=== PATIENT | female | born 1975 | race African-American/Black ===

== ENCOUNTER 2017-06-21 17:47 | Emergency (ER) | payer OTHER ==
[2017-06-21 18:09] VITALS: BP 155/106; PULSE 99; TEMP 98.3; BMI 28.3
--- NOTE | 2017-06-21 18:09 | PDOC ---
Rapid Medical Evaluation Time Seen by Provider: 06/21/17 18:05 Medical Evaluation: Allergies Allergy/AdvReac Type Severity Reaction Status Date / Time No Known Allergies Allergy Verified 06/29/15 10:07 06/21/17 18:05 The patient presents with a chief complaint of: Sore throat for one week. States she had a fever when the sore throat started, but it has since went away. also admits to productive cough I have performed a brief in-person evaluation of this patient; Pertinent physical exam findings: ambulatory, in no respiratory distress. Mild Erythema of the posterior oropharynx I have ordered the following: rapid strep The patient will proceed to the ED for further evaluation.
--- NOTE | 2017-06-21 20:01 | PDOC ---
History of Present Illness - General Chief Complaint: Sore Throat Stated Complaint: SORE THROAT Time Seen by Provider: 06/21/17 18:05 History Source: Patient Exam Limitations: No Limitations - History of Present Illness Initial Comments: CHIEF COMPLAINT: 42 y/o afebrile female with PMH NIDDM and HTN c/o scratchy throat and cough x 3 days. HISTORY OF PRESENT ILLNESS: Patient states last week she had a fever one day but that resolved. She states for the past 3 days she's had a cough and scratchy throat. She denies all other symptoms, including PINEDA, dizziness, changes in vision, neck pain. Vital signs on arrival are notable for BP of 155/106. REVIEW OF SYSTEMS: GENERAL/CONSTITUTIONAL: fever last week - resolved HEAD, EYES, EARS, NOSE AND THROAT: No change in vision. No ear pain or discharge. + sore throat. CARDIOVASCULAR: No chest pain or shortness of breath. RESPIRATORY: +cough. No wheezing or hemoptysis. GASTROINTESTINAL: No abd pain, nausea, vomiting, diarrhea. GENITOURINARY: No dysuria, frequency, or change in urination. MUSCULOSKELETAL: No joint or muscle swelling or pain. No neck or back pain. SKIN: No rash or easy bruising. NEUROLOGIC: No headache, vertigo, loss of consciousness, or loss of sensation. PHYSICAL EXAM: GENERAL: The patient is awake, alert, and fully oriented, in no acute distress. She is well appearing and ambulatory. No cough in the ER. HEAD: Normal with no signs of trauma. ENT: Pupils equal, round and reactive to light, extraocular movements intact, sclera anicteric, conjunctiva clear. Posterior pharyngeal erythema. No tonsilar edema or exudate. Uvula midline. NECK: No tender cervical lymphadenopathy. LUNGS: Clear to auscultation bilaterally. Normal excursion. No respiratory distress or use of accessory muscles. CV: RRR, S1/S2, no MRG. Cap refill < 2 sec. ABDOMEN: Soft, non-distended, non-tender even to deep palpation, no hepatomegaly or splenomegaly, no masses. EXTREMITIES: Normal range of motion, no edema. NEUROLOGICAL: Normal speech, normal gait. CN II-XII grossly intact. SKIN: Warm, dry, normal turgor, no rashes or lesions noted. Past History - Past Medical History Allergies/Adverse Reactions: Allergies Allergy/AdvReac Type Severity Reaction Status Date / Time No Known Allergies Allergy Verified 06/21/17 18:05 Home Medications: Ambulatory Orders Metformin HCl 500 mg PO BID 06/29/15 Ramipril 5 mg PO DAILY 06/29/15 COPD: No Diabetes: Yes HTN: Yes - Surgical History Abdominal Surgery: Yes (LAPAROSCOPY) - Suicide/Smoking/Psychosocial Hx Smoking History: Never smoked Have you smoked in the past 12 months: No Hx Alcohol Use: No Drug/Substance Use Hx: No *Physical Exam - Vital Signs Last Vital Signs Temp Pulse Resp BP Pulse Ox 98.3 F 99 H 19 155/106 100 06/21/17 18:06 06/21/17 18:06 06/21/17 18:06 06/21/17 18:06 06/21/17 18:06 Medical Decision Making - Medical Decision Making A/P: 42 y/o female with 3 days of cold symptoms. Rapid strep was sent from triage. Rapid strep - negative Gave patient instructions. Suggested MOtrin for pain/sore throat, gargling with warm salt water, and OTC allergy and cough medicines. Pt instructed to return to the ER with any worsening or concerning symptoms. The patient verbalizes understanding of all instructions, has no further questions and is awaiting discharge. *DC/Admit/Observation/Transfer Diagnosis at time of Disposition: Common cold - Discharge Dispostion Disposition: HOME Condition at time of disposition: Good - Referrals Referrals: Mikael Finley MD [Primary Care Provider] - Call tomorrow - Patient Instructions Printed Discharge Instructions: DI for Common Cold Additional Instructions: Discharge Instructions: -The swab of your throat was negative for strep throat -Gargle with warm salt water and use cough drops to help with sore throat and cough -Take MOtrin or Advil for pain -Drink at least 64oz of water daily -Return to the ER with any worsening or concerning symptoms - Post Discharge Activity
== END 2017-06-21 20:10 | disposition home or self-care (01) ==
LOC: JERFT 17:47
DX: J00 Acute nasopharyngitis [common cold] (principal); I10 Essential (primary) hypertension; E11.9 Type 2 diabetes mellitus without complications; Z79.84 Long term (current) use of oral hypoglycemic drugs
CPT/HCPCS: 87070; 87430; 99281-25

== ENCOUNTER 2017-08-23 09:52 | Emergency (ER) | payer OTHER ==
[2017-08-23 10:01] VITALS: BP 130/79; PULSE 85; TEMP 98.3; BMI 29.1
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
== END 2017-08-23 11:36 | disposition home or self-care (01) ==
LOC: JERFT 09:52 → JER 09:52 → JERFT 11:36
DX: Y04.1XXA Assault by human bite, initial encounter (principal); Y93.89 Activity, other specified; Y92.218 Other school as the place of occurrence of the external cause; Y99.0 Civilian activity done for income or pay; Y07.9 Unspecified perpetrator of maltreatment and neglect
CPT/HCPCS: 99281-25

== ENCOUNTER 2019-04-21 07:12 | Emergency (ER) | payer OTHER ==
[2019-04-21 08:03] VITALS: BP 151/82; PULSE 109; TEMP 99.2; BMI 29.8
[2019-04-21] MEDS ORDERED: ACETAMINOPHEN 500 MG TABLET (FP) PO ONE (08:15)
--- NOTE | 2019-04-21 08:15 | PDOC ---
History of Present Illness - General History Source: Patient Exam Limitations: No Limitations - History of Present Illness Initial Comments: 04/21/19 08:11 Patient is a 44-year-old female who presents to the ED with 2 to 3 days of significant body aches, fevers with T-max of 102F, rhinorrhea and general malaise. She has a history of hypertension and diabetes. She has non-insulin- dependent. She states that she believes she has the flu and came to the ED for further evaluation. She has been taking Tylenol and ibuprofen for her fevers and body aches. <Dyan Izaguirre - Last Filed: 04/21/19 08:39> <Alvaro Retana - Last Filed: 04/21/19 14:12> - General Chief Complaint: Cold Symptoms Stated Complaint: WEAKNESS,CHILLS Time Seen by Provider: 04/21/19 08:04 Past History - Past Medical History COPD: No DVT: No Diabetes: Yes HTN: Yes - Surgical History Abdominal Surgery: Yes (LAPAROSCOPY) - Psycho Social/Smoking Cessation Hx Smoking History: Never smoked Have you smoked in the past 12 months: No Information on smoking cessation initiated: No Hx Alcohol Use: No Drug/Substance Use Hx: No Substance Use Type: None <Dyan Izaguirre - Last Filed: 04/21/19 08:39> <Alvaro Retana - Last Filed: 04/21/19 14:12> - Past Medical History Allergies/Adverse Reactions: Allergies Allergy/AdvReac Type Severity Reaction Status Date / Time No Known Allergies Allergy Verified 10/03/17 16:47 Home Medications: Ambulatory Orders Ramipril 5 mg PO DAILY 06/29/15 metFORMIN HCL [Metformin HCl] 500 mg PO BID 06/29/15 Amoxicillin/Potassium Clav [Augmentin 875-125 Tablet] 1 each PO BID 10 Days #20 tablet 10/03/17 Oseltamivir Phosphate [Tamiflu] 75 mg PO BID #10 capsule 04/21/19 Review of Systems - Review of Systems Comments:: 04/21/19 08:12 - Review of Systems Able to Perform ROS?: Yes Constitutional: Positive: Fever, Chills, Loss of Appetite, malaise; no: Night Sweats, Weakness HEENTM: No: Eye Pain, Vision changes, Ear Pain, Throat Pain, Throat Swelling, Mouth Pain, Difficulty Swallowing; + rhinorrhea Respiratory: No: Cough, Shortness of Breath, Wheezing, Sputum Production Cardiac (ROS): No: Chest Pain, Chest Tightness, Palpitations, Irregular Heart Beat, Edema ABD/GI: No: Nausea, Vomiting, Abdominal Pain, Diarrhea : No Dysuria, No Hematuria, No Frequency, No Urgency Musculoskeletal: No: Muscle Pain, Back Pain, Joint Pain, Muscle Weakness, Neck Pain; + bodyaches Integumentary: No: Lesions, Rash Neurological: No: Headache, Numbness, Tingling, Weakness, Speech Difficulties 04/21/19 08:43 <Dyan Izaguirre - Last Filed: 04/21/19 08:39> *Physical Exam - Vital Signs Last Vital Signs Temp Pulse Resp BP Pulse Ox 99.2 F 109 H 18 151/82 99 04/21/19 07:30 04/21/19 07:30 04/21/19 07:30 04/21/19 07:30 04/21/19 07:30 - Physical Exam 04/21/19 08:13 - Physical Exam General Appearance: Nourished, Appropriately Dressed, Moderate distress secondary to general unwell feeling HEENT: EOMI, Normal Voice, No Pharyngeal Erythema, No Muffled/Hoarse voice, No Tonsillar Exudate, No Tonsillar Erythema, + Nasal Congestion, + Rhinorrhea, Hearing Grossly Normal, TMs Normal, No TM Bulging, No TM Dullness, No TM Erythema Neck: Supple, No Lymphadenopathy (R), No Lymphadenopathy (L), No Rigidity, No Decreased range of motion Respiratory/Chest: Lungs Clear, Normal Breath Sounds. No Respiratory Distress, No Accessory Muscle Use Cardiovascular: Regular Rhythm, Regular Rate, S1, S2 Gastrointestinal/Abdominal: Normal Bowel Sounds, Soft. Non-tender, No Guarding , No Rebound, No Rigidity Musculoskeletal: Normal Inspection. No Decreased Range of Motion Extremity: Normal Capillary Refill, Normal Inspection Integumentary: Normal Color, Dry. 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 intact, Fully Oriented, Alert, Normal Mood/Affect, Normal Response <DmitriyDyan D - Last Filed: 04/21/19 08:39> - Vital Signs Last Vital Signs Temp Pulse Resp BP Pulse Ox 99.2 F 109 H 18 151/82 99 04/21/19 07:30 04/21/19 07:30 04/21/19 07:30 04/21/19 07:30 04/21/19 07:30 <Alvaro Retana - Last Filed: 04/21/19 14:12> ED Treatment Course - ADDITIONAL ORDERS Additional order review: 04/21/19 08:40 Laboratory Tests 04/21/19 08:09 Influenza A (Rapid) Positive A Influenza B (Rapid) Negative <Dyan Izaguirre - Last Filed: 04/21/19 08:39> - Medications Given in the ED: ED Medications Discontinued Medications Generic Name Dose Route Start Last Admin Trade Name Ayad PRN Reason Stop Dose Admin Acetaminophen 1,000 mg 04/21/19 08:15 04/21/19 08:21 Tylenol - PO 04/21/19 08:16 1,000 mg ONCE ONE Administration <Alvaro Retana - Last Filed: 04/21/19 14:12> Medical Decision Making - Medical Decision Making 04/21/19 08:14 Patient is a 44-year-old female with history of diabetes and hypertension who presents to the ED with 2 to 3 days of flulike illness. -Flu swab -Tylenol -Will reassess 04/21/19 08:39 Patient is influenza A positive. I have made her aware that since her symptoms started 2 to 3 days ago but she is high risk, I will treat her with Tamiflu. She should avoid the elderly and very young. She has been made aware that this infection is very contagious. She should get plenty of rest and drink plenty of fluids. She should alternate Tylenol and ibuprofen for fevers and body aches. She understands and agrees with this treatment and plan and she is stable for discharge. <Dyan Izaguirre - Last Filed: 04/21/19 08:39> - Medical Decision Making 04/21/19 14:12 I reviewed the case of the mid-level practitioner and was available for consultation while in the emergency department <Alvaro Retana - Last Filed: 04/21/19 14:12> Discharge - Discharge Information Problems reviewed: Yes <Dyan Izaguirre - Last Filed: 04/21/19 08:39> <Alvaro Retana - Last Filed: 04/21/19 14:12> - Discharge Information Clinical Impression/Diagnosis: Influenza A Condition: Stable Disposition: HOME - Additional Discharge Information Prescriptions: Oseltamivir Phosphate [Tamiflu] 75 mg PO BID #10 capsule - Follow up/Referral Referrals: Mikael Finley MD [Primary Care Provider] - - Patient Discharge Instructions Patient Printed Discharge Instructions: DI for Influenza -- Adult Additional Instructions: Get plenty of rest and drink plenty of fluids. Take Tylenol and ibuprofen for fevers or body aches. Take the Tamiflu as prescribed. If the Tamiflu starts to cause vomiting and diarrhea, you may stop the Tamiflu at any time. Follow- up with your primary doctor within 1 to 2 days for repeat evaluation. Be aware that the flu is very contagious so you should avoid contact with others especially the very old and the very young. - Post Discharge Activity Work/Back to School Note: Back to Work
[2019-04-21] MEDS ORDERED: ACETAMINOPHEN 500 MG TABLET (FP) ONE (08:18)
== END 2019-04-21 08:54 | disposition home or self-care (01) ==
LOC: JER 07:12
DX: J09.X2 Influenza due to identified novel influenza A virus with other respiratory manifestations (principal); I10 Essential (primary) hypertension; E11.9 Type 2 diabetes mellitus without complications; Z79.84 Long term (current) use of oral hypoglycemic drugs
CPT/HCPCS: 87804; 99283-25

== ENCOUNTER 2020-11-19 04:55 | Inpatient (IN) | payer OTHER ==
[2020-11-19] MEDS ORDERED: SODIUM CHLORIDE 1,000 ML IV STA (05:01)
[2020-11-19] MEDS ORDERED: SODIUM CHLORIDE 0.9% 500 ML INFUS.BAG IV ONE ×2 (05:03→07:01)
[2020-11-19 06:22] LABS: BASO % 0.3 % (0-2.0); HEMATOCRIT 46.1 % (32.4-45.2); HEMOGLOBIN 16.2 GM/dL (10.7-15.3); MCH 35.2 pg (25.7-33.7); MCHC 35.1 g/dl (32.0-36.0); MEAN CELL VOLUME 100.1 fl (80-96); MONO % 12.4 % (3.8-10.2); NEUT % 85.3 % (42.8-82.8); PLATELET COUNT 247 10^3/uL (134-434); RBC 4.61 M/mm3 (3.60-5.2); RDW 12.2 % (11.6-15.6); WHITE BLOOD COUNT 10.9 K/mm3 (4.0-10.0)
[2020-11-19 06:26] LABS: INR 1.04 (0.83-1.09); PROTHROMBIN TIME (PATIENT) 12.6 SEC (9.7-13.0)
[2020-11-19 06:29] LABS: ACTIVATED PTT 20.1 SECONDS (25.2-36.5)
[2020-11-19 06:53] LABS: CHLORIDE 101 mmol/L (98-107); SODIUM 131 mmol/L (136-145)
[2020-11-19 06:55] LABS: ALBUMIN 3.4 g/dl (3.4-5.0); ANION GAP 21 MMOL/L (8-16); BLOOD UREA NITROGEN 22.1 mg/dL (7-18); CALCIUM 8.9 mg/dL (8.5-10.1); CO2 9 mmol/L (21-32)
[2020-11-19 06:59] LABS: BILIRUBIN,TOTAL 0.5 mg/dL (0.2-1); CREATININE 1.3 mg/dL (0.55-1.3); SGOT/AST 21 U/L (15-37); SGPT/ALT 19 U/L (13-61); TOT PROT 8.6 g/dl (6.4-8.2)
[2020-11-19 07:01] LABS: ALK PHOS 86 U/L (45-117)
[2020-11-19 07:12] LABS: VENOUS BASE EXCESS -18.8 mmol/L (-2-2); VENOUS PCO2 27.2 mmHg (38-52)
[2020-11-19 07:16] LABS: VENOUS PH 7.128 (7.310-7.410)
[2020-11-19 07:41] LABS: GLUCOSE,RANDOM 484 mg/dL (74-106)
[2020-11-19 07:41] LABS: BILIRUBIN,DIRECT < 0.1 mg/dL (0.0-0.2); LDH 1280 U/L (84-246)
[2020-11-19 08:12] LABS: SARS COV-2 MOLECULAR Presumptive Positive (Negative)
[2020-11-19 08:21] LABS: URINE APPEARANCE Clear; URINE BILIRUBIN 1+ (NEGATIVE); URINE COLOR Yellow; URINE GLUCOSE (UA) 2+ (NEGATIVE); URINE KETONE 4+ (NEGATIVE); URINE LEUK ESTERASE Negative (NEGATIVE); URINE NITRITE Negative (NEGATIVE); URINE PROTEIN 2+ (NEGATIVE); URINE UROBILINOGEN 0.2 mg/dL (0.2-1.0)
[2020-11-19] MEDS ORDERED: DEXTROSE 50%-WATER - 25 GM/50 ML VIAL IVPUSH PRN (08:46)
[2020-11-19] MEDS ORDERED: INSULIN REGULAR HUMAN 100 UNITS/ML *VIAL* (FOR IVP) IVPUSH ONE (08:46)
[2020-11-19 08:50] LABS: CHLORIDE 107 mmol/L (98-107); SODIUM 133 mmol/L (136-145)
[2020-11-19 08:51] LABS: ANION GAP 18 MMOL/L (8-16); BLOOD UREA NITROGEN 19.7 mg/dL (7-18); CALCIUM 8.6 mg/dL (8.5-10.1); CO2 9 mmol/L (21-32); MAGNESIUM 2.4 mg/dL (1.8-2.4)
[2020-11-19 08:56] LABS: CREATININE 1.2 mg/dL (0.55-1.3); PHOSPHOROUS 2.8 mg/dL (2.5-4.9)
[2020-11-19] MEDS ORDERED: INSULIN REGULAR 100 UNITS in SODIUM CHLORIDE 99 ML IVPB SCH (09:00)
[2020-11-19 09:13] LABS: LIPASE QNS U/L (73-393)
[2020-11-19 09:20] LABS: EPI CELLS 23.2 /uL (0-25.1); HYALINE CASTS 1.52 /uL (0-3.1); URINE BACTERIA 198.4 /uL (0-1359); URINE RBC 39.8 /uL (0-23.9); URINE WBC 16.8 /uL (0-25.8)
[2020-11-19 09:35] LABS: GLUCOSE,RANDOM 407 mg/dL (74-106)
[2020-11-19] MEDS ORDERED: CEFTRIAXONE 1 GM in DEXTROSE 5%-WATER - 100 ML IVPB ONE (10:23)
[2020-11-19] MEDS ORDERED: ENOXAPARIN NA (PORCINE) 80 MG/0.8 ML DISP.SYRIN SQ ONE ×2 (12:30→13:41)
[2020-11-19] MEDS ORDERED: DEXAMETHASONE 4 MG TABLET (FP) PO ONE (12:30)
[2020-11-19 12:34] LABS: BLOOD UREA NITROGEN 16.1 mg/dL (7-18); CALCIUM 8.4 mg/dL (8.5-10.1)
[2020-11-19 12:38] LABS: CREATININE 1.2 mg/dL (0.55-1.3)
[2020-11-19] MEDS ORDERED: SODIUM CHLORIDE 1,000 ML IV SCH ×3 (12:45→23:19)
[2020-11-19] MEDS ORDERED: CEFTRIAXONE 1 GM/50 ML BAG ONE (12:52)
[2020-11-19] MEDS ORDERED: ACETAMINOPHEN INJECTION 100 ML IVPB ONE (14:15)
[2020-11-19] MEDS: ACETAMINOPHEN 1000 MG/100 ML VIAL (NON FORMULARY) IVPB PRN (14:30)
[2020-11-19] MEDS ORDERED: REMDESIVIR 200 MG in SODIUM CHLORIDE 250 ML IVPB ONE (15:01)
[2020-11-19] MEDS ORDERED: DEXAMETHASONE SOD PHOSPHATE 4 MG/1 ML VIAL IVPUSH ONE (15:56)
[2020-11-19] MEDS ORDERED: REMDESIVIR 100 MG in SODIUM CHLORIDE 250 ML IVPB SCH (16:00)
[2020-11-19] MEDS ORDERED: AZITHROMYCIN IVPB 500 MG/250 ML BAG IVPB ONE (16:08)
[2020-11-19] MEDS ORDERED: PNEUMOC 13-VAL CONJ-DIP CRM/PF 0.5 ML DISP.SYRIN IM ONE (16:13)
[2020-11-19] MEDS ORDERED: PNEUMOCOCCAL 23 VACCINE 0.5 ML VIAL IM ONE (16:30)
[2020-11-19] MEDS ORDERED: DEXTROSE 5%-0.45% SALINE 1,000 ML IV SCH (18:00)
[2020-11-19 22:12] LABS: BLOOD UREA NITROGEN 14.4 mg/dL (7-18); CALCIUM 8.2 mg/dL (8.5-10.1)
[2020-11-19] MEDS: MUPIROCIN 2% TOPICAL OINTMENT FOR DECOLONIZATION NS SCH (22:47)
[2020-11-19] MEDS: CHLORHEXIDINE GLUCONATE 4% CLEANSER FOR DECOLONIZATION TP SCH (22:47)
[2020-11-20] MEDS ORDERED: amLODIPine BESYLATE 5 MG TABLET (FP) PO ONE ×2 (02:13→04:25)
[2020-11-20] MEDS: SODIUM CHLORIDE 1,000 ML IV SCH (02:54)
[2020-11-20 02:56] LABS: CALCIUM 8.2 mg/dL (8.5-10.1)
[2020-11-20 02:57] LABS: BLOOD UREA NITROGEN 12.8 mg/dL (7-18)
[2020-11-20 03:00] LABS: CREATININE 1.1 mg/dL (0.55-1.3)
[2020-11-20] MEDS ORDERED: INSULIN (LEVEMIR) 100 UNITS/ML UNITS SQ ONE (06:07)
[2020-11-20] MEDS ORDERED: INSULIN SLIDING SCALE (NOVOLOG) 1 VIAL SQ SCH (07:00)
[2020-11-20 07:05] LABS: HEMATOCRIT 40.8 % (32.4-45.2); HEMOGLOBIN 14.6 GM/dL (10.7-15.3); MCH 34.7 pg (25.7-33.7); MCHC 35.8 g/dl (32.0-36.0); MEAN CELL VOLUME 96.8 fl (80-96); MEAN PLT VOLUME 8.4 fl (7.5-11.1); PLATELET COUNT 200 10^3/uL (134-434); RBC 4.21 M/mm3 (3.60-5.2); RDW 12.1 % (11.6-15.6); WHITE BLOOD COUNT 8.2 K/mm3 (4.0-10.0)
[2020-11-20 07:20] LABS: CHLORIDE 109 mmol/L (98-107); SODIUM 138 mmol/L (136-145)
[2020-11-20 07:24] LABS: ANION GAP 11 MMOL/L (8-16); BLOOD UREA NITROGEN 11.9 mg/dL (7-18); CALCIUM 8.6 mg/dL (8.5-10.1); CO2 18 mmol/L (21-32); GLUCOSE,RANDOM 171 mg/dL (74-106); MAGNESIUM 2.1 mg/dL (1.8-2.4)
[2020-11-20 07:26] LABS: CREATININE 0.9 mg/dL (0.55-1.3)
[2020-11-20 08:20] LABS: PHOSPHOROUS 0.8 mg/dL (2.5-4.9)
[2020-11-20] MEDS: INSULIN SLIDING SCALE (NOVOLOG) 1 VIAL SQ SCH ×5 (08:36→22:51)
[2020-11-20 08:50] LABS: ANISOCYTOSIS 0; HELMET CELLS 0; HOWELL-JOLLY BODIES 0; MACROCYTOSIS 0; OVALOCYTE 0; PLATELET ESTIMATE NORMAL; ROULEAU 0; SICKELED CELLS 0; TARGET CELLS 0; TEAR DROP CELLS 0; TOXIC GRANULATION 0
[2020-11-20] MEDS: MUPIROCIN 2% TOPICAL OINTMENT FOR DECOLONIZATION NS SCH ×3 (09:15→22:50)
[2020-11-20] MEDS: DEXAMETHASONE SOD PHOSPHATE 4 MG/1 ML VIAL IVPUSH SCH (09:15)
[2020-11-20] MEDS: RAMIPRIL 5 MG CAPSULE PO SCH (09:15)
[2020-11-20] MEDS: ENOXAPARIN NA (PORCINE) 40 MG/0.4 ML DISP.SYRIN SQ SCH (09:16)
[2020-11-20] MEDS ORDERED: DEXTROSE 5%-WATER - 50 ML IVPB ONE (09:22)
[2020-11-20] MEDS ORDERED: cefTRIAXone SODIUM 1 GM VIAL ONE (09:22)
[2020-11-20] MEDS: CEFTRIAXONE 1 GM in DEXTROSE 5%-WATER - 50 ML IVPB SCH (09:23)
[2020-11-20] MEDS ORDERED: SODIUM PHOSPHATE - 30 MM in SODIUM CHLORIDE 250 ML IVPB ONE (10:00)
[2020-11-20 10:07] LABS: SARS-CoV-2 NAA Detected (Not Detected)
[2020-11-20] MEDS: ACETAMINOPHEN 1000 MG/100 ML VIAL (NON FORMULARY) IVPB PRN (10:26)
[2020-11-20 13:42] LABS: CALCIUM 7.8 mg/dL (8.5-10.1)
[2020-11-20] MEDS ORDERED: POTASSIUM CHLORIDE TABS 20 MEQ TABLET.ER (FP) PO ONE (14:00)
[2020-11-20 14:10] LABS: MAGNESIUM 1.9 mg/dL (1.8-2.4)
[2020-11-20 14:13] LABS: PHOSPHOROUS 1.6 mg/dL (2.5-4.9)
[2020-11-20] MEDS: REMDESIVIR 100 MG in SODIUM CHLORIDE 250 ML IVPB SCH (15:05)
[2020-11-20] MEDS: AZITHROMYCIN IVPB 500 MG/250 ML BAG IVPB SCH (15:08)
[2020-11-20] MEDS ORDERED: POTASSIUM PHOSPHATE 30 MM in SODIUM CHLORIDE 250 ML IVPB ONE (16:00)
[2020-11-20] MEDS: CHLORHEXIDINE GLUCONATE 4% CLEANSER FOR DECOLONIZATION TP SCH (22:50)
[2020-11-20] MEDS ORDERED: ACETAMINOPHEN 1000 MG/100 ML VIAL (NON FORMULARY) IVPB PRN (23:26)
[2020-11-21] MEDS: SODIUM CHLORIDE 1,000 ML IV SCH (05:16)
[2020-11-21] MEDS: INSULIN SLIDING SCALE (NOVOLOG) 1 VIAL SQ SCH ×4 (06:23→21:12)
[2020-11-21 07:40] LABS: HEMATOCRIT 37.4 % (32.4-45.2); HEMOGLOBIN 13.5 GM/dL (10.7-15.3); MCH 34.8 pg (25.7-33.7); MCHC 36.3 g/dl (32.0-36.0); MEAN CELL VOLUME 95.9 fl (80-96); MEAN PLT VOLUME 8.5 fl (7.5-11.1); PLATELET COUNT 186 10^3/uL (134-434); RBC 3.89 M/mm3 (3.60-5.2); RDW 12.2 % (11.6-15.6); WHITE BLOOD COUNT 10.1 K/mm3 (4.0-10.0)
[2020-11-21 07:59] LABS: BLOOD UREA NITROGEN 12.4 mg/dL (7-18); CALCIUM 7.5 mg/dL (8.5-10.1)
[2020-11-21 08:02] LABS: CREATININE 0.7 mg/dL (0.55-1.3); PHOSPHOROUS 1.6 mg/dL (2.5-4.9)
[2020-11-21 08:05] LABS: BILIRUBIN,TOTAL 0.6 mg/dL (0.2-1)
[2020-11-21 08:33] LABS: ANISOCYTOSIS 1+; MACROCYTOSIS 1+; PLATELET ESTIMATE NORMAL
[2020-11-21] MEDS ORDERED: cefTRIAXone SODIUM 1 GM VIAL ONE (08:51)
[2020-11-21] MEDS ORDERED: DEXTROSE 5%-WATER - 50 ML IVPB ONE (08:51)
[2020-11-21] MEDS: DEXAMETHASONE SOD PHOSPHATE 4 MG/1 ML VIAL IVPUSH SCH (09:00)
[2020-11-21] MEDS: CEFTRIAXONE 1 GM in DEXTROSE 5%-WATER - 50 ML IVPB SCH (09:01)
[2020-11-21] MEDS: ENOXAPARIN NA (PORCINE) 40 MG/0.4 ML DISP.SYRIN SQ SCH (09:01)
[2020-11-21] MEDS: MUPIROCIN 2% TOPICAL OINTMENT FOR DECOLONIZATION NS SCH ×2 (09:01→21:12)
[2020-11-21] MEDS: RAMIPRIL 5 MG CAPSULE PO SCH (09:01)
[2020-11-21] MEDS ORDERED: POTASSIUM PHOSPHATE 30 MM in SODIUM CHLORIDE 500 ML IVPB ONE (10:00)
[2020-11-21 14:12] LABS: ALBUMIN 2.3 g/dl (3.4-5.0); TOT PROT 5.8 g/dl (6.4-8.2)
[2020-11-21] MEDS: REMDESIVIR 100 MG in SODIUM CHLORIDE 250 ML IVPB SCH (16:55)
[2020-11-21] MEDS: AZITHROMYCIN IVPB 500 MG/250 ML BAG IVPB SCH (17:18)
[2020-11-21] MEDS: CHLORHEXIDINE GLUCONATE 4% CLEANSER FOR DECOLONIZATION TP SCH (21:12)
[2020-11-22] MEDS: guaiFENesin/D-METHORPHAN HB 10 ML UNIT-DOSE CUPS PO PRN ×2 (00:09→22:37)
[2020-11-22] MEDS: SODIUM CHLORIDE 1,000 ML IV SCH (05:24)
[2020-11-22] MEDS: INSULIN SLIDING SCALE (NOVOLOG) 1 VIAL SQ SCH ×4 (06:30→21:09)
[2020-11-22 07:22] LABS: BASO % 0.3 % (0-2.0); EOS % 0.1 % (0-4.5); HEMATOCRIT 38.3 % (32.4-45.2); HEMOGLOBIN 13.4 GM/dL (10.7-15.3); LYMPH % 3.7 % (8-40); MCHC 35.2 g/dl (32.0-36.0); MEAN CELL VOLUME 96.8 fl (80-96); MEAN PLT VOLUME 8.4 fl (7.5-11.1); MONO % 11.6 % (3.8-10.2); NEUT % 84.3 % (42.8-82.8); PLATELET COUNT 172 10^3/uL (134-434); RBC 3.95 M/mm3 (3.60-5.2); RDW 12.2 % (11.6-15.6); WHITE BLOOD COUNT 10.7 K/mm3 (4.0-10.0)
[2020-11-22] MEDS ORDERED: INSULIN (LEVEMIR) 100 UNITS/ML UNITS SQ SCH ×2 (07:30→09:44)
[2020-11-22 07:39] LABS: ALBUMIN 2.3 g/dl (3.4-5.0); BLOOD UREA NITROGEN 16.3 mg/dL (7-18); CALCIUM 7.9 mg/dL (8.5-10.1); MAGNESIUM 2.1 mg/dL (1.8-2.4)
[2020-11-22 07:44] LABS: BILIRUBIN,TOTAL 0.6 mg/dL (0.2-1); CREATININE 0.7 mg/dL (0.55-1.3); PHOSPHOROUS 2.1 mg/dL (2.5-4.9); TOT PROT 5.8 g/dl (6.4-8.2)
[2020-11-22] MEDS ORDERED: POTASSIUM PHOSPHATE 30 MM in DEXTROSE 5%-WATER - 250 ML IVPB ONE (09:11)
[2020-11-22 09:15] LABS: ANISOCYTOSIS 0; HELMET CELLS 0; HOWELL-JOLLY BODIES 0; MACROCYTOSIS 0; OVALOCYTE 0; PLATELET ESTIMATE NORMAL; ROULEAU 0; SICKELED CELLS 0; TARGET CELLS 0; TEAR DROP CELLS 0; TOXIC GRANULATION 0
[2020-11-22] MEDS ORDERED: cefTRIAXone SODIUM 1 GM VIAL ONE (10:27)
[2020-11-22] MEDS ORDERED: DEXTROSE 5%-WATER - 50 ML IVPB ONE (10:28)
[2020-11-22] MEDS: CEFTRIAXONE 1 GM in DEXTROSE 5%-WATER - 50 ML IVPB SCH (10:49)
[2020-11-22] MEDS: RAMIPRIL 5 MG CAPSULE PO SCH (10:49)
[2020-11-22] MEDS: ENOXAPARIN NA (PORCINE) 40 MG/0.4 ML DISP.SYRIN SQ SCH (10:51)
[2020-11-22] MEDS: DEXAMETHASONE SOD PHOSPHATE 4 MG/1 ML VIAL IVPUSH SCH (10:52)
[2020-11-22] MEDS ORDERED: PT OWN MED DRAWER 7, Y5N ONE (11:40)
[2020-11-22] MEDS: MUPIROCIN 2% TOPICAL OINTMENT FOR DECOLONIZATION NS SCH ×2 (11:50→21:09)
[2020-11-22] MEDS: REMDESIVIR 100 MG in SODIUM CHLORIDE 250 ML IVPB SCH (15:39)
[2020-11-22 18:30] LABS: EPI CELLS 16 /uL (0-25.1); HYALINE CASTS 0 /uL (0-3.1); PH,URINE 6.5 (5.0-8.0); URINE APPEARANCE CLEAR; URINE BACTERIA 1 /uL (0-1359); URINE BILIRUBIN NEGATIVE (NEGATIVE); URINE COLOR YELLOW; URINE GLUCOSE (UA) 3+ (NEGATIVE); URINE KETONE 3+ (NEGATIVE); URINE LEUK ESTERASE Error (NEGATIVE); URINE NITRITE NEGATIVE (NEGATIVE); URINE PROTEIN NEGATIVE (NEGATIVE); URINE RBC 160 /uL (0-23.9); URINE UROBILINOGEN 0.2 mg/dL (0.2-1.0); URINE WBC 4 /uL (0-25.8)
[2020-11-22] MEDS: AZITHROMYCIN IVPB 500 MG/250 ML BAG IVPB SCH (20:09)
[2020-11-22] MEDS: INSULIN (LEVEMIR) 100 UNITS/ML UNITS SQ SCH (21:09)
[2020-11-22] MEDS: CHLORHEXIDINE GLUCONATE 4% CLEANSER FOR DECOLONIZATION TP SCH (21:09)
[2020-11-23] MEDS: SODIUM CHLORIDE 1,000 ML IV SCH (02:34)
[2020-11-23 05:46] LABS: HEMOGLOBIN 13.2 GM/dL (10.7-15.3); MCH 34.2 pg (25.7-33.7); MCHC 35.8 g/dl (32.0-36.0); MEAN CELL VOLUME 95.7 fl (80-96); MEAN PLT VOLUME 8.3 fl (7.5-11.1); PLATELET COUNT 175 10^3/uL (134-434); RBC 3.86 M/mm3 (3.60-5.2); RDW 11.8 % (11.6-15.6); WHITE BLOOD COUNT 9.9 K/mm3 (4.0-10.0)
[2020-11-23] MEDS: INSULIN (LEVEMIR) 100 UNITS/ML UNITS SQ SCH ×2 (06:25→21:37)
[2020-11-23] MEDS: INSULIN SLIDING SCALE (NOVOLOG) 1 VIAL SQ SCH ×4 (06:25→21:38)
[2020-11-23 08:24] LABS: ANISOCYTOSIS 0; MACROCYTOSIS 0; PLATELET ESTIMATE NORMAL
[2020-11-23] MEDS ORDERED: cefTRIAXone SODIUM 1 GM VIAL ONE (09:20)
[2020-11-23] MEDS ORDERED: DEXTROSE 5%-WATER - 50 ML IVPB ONE (09:20)
[2020-11-23] MEDS: DEXAMETHASONE SOD PHOSPHATE 4 MG/1 ML VIAL IVPUSH SCH (09:24)
[2020-11-23] MEDS: RAMIPRIL 5 MG CAPSULE PO SCH (09:24)
[2020-11-23] MEDS: ENOXAPARIN NA (PORCINE) 40 MG/0.4 ML DISP.SYRIN SQ SCH (09:24)
[2020-11-23] MEDS: MUPIROCIN 2% TOPICAL OINTMENT FOR DECOLONIZATION NS SCH ×2 (09:25→21:38)
[2020-11-23] MEDS: CEFTRIAXONE 1 GM in DEXTROSE 5%-WATER - 50 ML IVPB SCH (09:25)
[2020-11-23] MEDS ORDERED: ACETAMINOPHEN 500 MG TABLET (FP) PO PRN (16:01)
[2020-11-23] MEDS: AZITHROMYCIN IVPB 500 MG/250 ML BAG IVPB SCH (16:30)
[2020-11-23] MEDS: REMDESIVIR 100 MG in SODIUM CHLORIDE 250 ML IVPB SCH (16:30)
[2020-11-23] MEDS: CHLORHEXIDINE GLUCONATE 4% CLEANSER FOR DECOLONIZATION TP SCH (21:38)
[2020-11-23] MEDS ORDERED: SODIUM CHLORIDE 1,000 ML IV SCH (23:30)
[2020-11-23] MEDS ORDERED: DEXTROSE 50%-WATER - 25 GM/50 ML VIAL IVPUSH PRN (23:30)
[2020-11-23] MEDS ORDERED: guaiFENesin/D-METHORPHAN HB 10 ML UNIT-DOSE CUPS PO PRN (23:30)
[2020-11-24] MEDS: INSULIN SLIDING SCALE (NOVOLOG) 1 VIAL SQ SCH ×4 (06:26→21:39)
[2020-11-24] MEDS: INSULIN (LEVEMIR) 100 UNITS/ML UNITS SQ SCH ×2 (06:36→21:40)
[2020-11-24 08:52] LABS: HEMATOCRIT 37.1 % (32.4-45.2); HEMOGLOBIN 13.1 GM/dL (10.7-15.3); MCH 33.7 pg (25.7-33.7); MCHC 35.2 g/dl (32.0-36.0); MEAN CELL VOLUME 95.7 fl (80-96); MEAN PLT VOLUME 7.9 fl (7.5-11.1); PLATELET COUNT 254 10^3/uL (134-434); RBC 3.87 M/mm3 (3.60-5.2); WHITE BLOOD COUNT 10.1 K/mm3 (4.0-10.0)
[2020-11-24 09:15] LABS: CHLORIDE 102 mmol/L (98-107); SODIUM 140 mmol/L (136-145)
[2020-11-24 09:16] LABS: CALCIUM 7.9 mg/dL (8.5-10.1)
[2020-11-24 09:17] LABS: BLOOD UREA NITROGEN 9.7 mg/dL (7-18); CO2 32 mmol/L (21-32); GLUCOSE,RANDOM 97 mg/dL (74-106)
[2020-11-24 09:20] LABS: CREATININE 0.5 mg/dL (0.55-1.3)
[2020-11-24 09:34] LABS: ANION GAP 6 MMOL/L (8-16)
[2020-11-24 09:45] LABS: ANISOCYTOSIS 0; MACROCYTOSIS 0; PLATELET ESTIMATE NORMAL
[2020-11-24] MEDS: ENOXAPARIN NA (PORCINE) 40 MG/0.4 ML DISP.SYRIN SQ SCH (09:48)
[2020-11-24] MEDS: RAMIPRIL 5 MG CAPSULE PO SCH (09:48)
[2020-11-24] MEDS: DEXAMETHASONE SOD PHOSPHATE 4 MG/1 ML VIAL IVPUSH SCH (09:48)
[2020-11-24] MEDS ORDERED: MUPIROCIN 2% TOPICAL OINTMENT FOR DECOLONIZATION NS SCH (10:00)
[2020-11-24] MEDS ORDERED: PNEUMOC 13-VAL CONJ-DIP CRM/PF 0.5 ML DISP.SYRIN IM ONE (10:00)
[2020-11-24] MEDS ORDERED: PNEUMOCOCCAL 23 VACCINE 0.5 ML VIAL IM ONE (10:00)
[2020-11-24] MEDS: POTASSIUM CHLORIDE TABS 20 MEQ TABLET.ER (FP) PO SCH ×2 (10:59→21:37)
[2020-11-24] MEDS ORDERED: POTASSIUM CHLORIDE TABS 20 MEQ TABLET.ER (FP) PO ONE (13:00)
[2020-11-24] MEDS: KCL 10 MEQ IVPB 10 MEQ/100 ML INFUS.BAG IVPB SCH ×3 (13:31→16:45)
[2020-11-24] MEDS ORDERED: AZITHROMYCIN IVPB 500 MG/250 ML BAG IVPB SCH (16:00)
[2020-11-24 17:31] VITALS: BMI 25.7
[2020-11-24] MEDS ORDERED: CHLORHEXIDINE GLUCONATE 4% CLEANSER FOR DECOLONIZATION TP SCH (22:00)
[2020-11-25] MEDS: INSULIN (LEVEMIR) 100 UNITS/ML UNITS SQ SCH ×2 (06:19→21:57)
[2020-11-25] MEDS: INSULIN SLIDING SCALE (NOVOLOG) 1 VIAL SQ SCH ×4 (06:43→21:58)
[2020-11-25] MEDS: DEXAMETHASONE SOD PHOSPHATE 4 MG/1 ML VIAL IVPUSH SCH (10:03)
[2020-11-25] MEDS: RAMIPRIL 5 MG CAPSULE PO SCH (10:03)
[2020-11-25] MEDS: ENOXAPARIN NA (PORCINE) 40 MG/0.4 ML DISP.SYRIN SQ SCH (10:03)
[2020-11-25] MEDS: POTASSIUM CHLORIDE TABS 20 MEQ TABLET.ER (FP) PO SCH ×2 (10:42→21:59)
[2020-11-25 16:32] LABS: BLOOD UREA NITROGEN 10.2 mg/dL (7-18)
[2020-11-25 16:36] LABS: CREATININE 0.7 mg/dL (0.55-1.3)
[2020-11-25] MEDS: predniSONE 20 MG TABLET (UD) PO SCH (21:59)
[2020-11-25] MEDS ORDERED: POTASSIUM CHLORIDE TABS 10 MEQ TABLET.ER (FP) PO SCH (22:15)
[2020-11-26] MEDS: INSULIN (LEVEMIR) 100 UNITS/ML UNITS SQ SCH (06:37)
[2020-11-26] MEDS: INSULIN SLIDING SCALE (NOVOLOG) 1 VIAL SQ SCH ×3 (06:38→17:15)
[2020-11-26 09:01] LABS: ALBUMIN 2.2 g/dl (3.4-5.0); CALCIUM 8.2 mg/dL (8.5-10.1); MAGNESIUM 1.9 mg/dL (1.8-2.4)
[2020-11-26 09:04] LABS: CREATININE 0.6 mg/dL (0.55-1.3)
[2020-11-26 09:05] LABS: BILIRUBIN,TOTAL 1.2 mg/dL (0.2-1)
[2020-11-26 09:06] LABS: TOT PROT 5.9 g/dl (6.4-8.2)
[2020-11-26] MEDS: ENOXAPARIN NA (PORCINE) 40 MG/0.4 ML DISP.SYRIN SQ SCH (10:38)
[2020-11-26] MEDS: predniSONE 20 MG TABLET (UD) PO SCH (10:39)
[2020-11-26] MEDS: RAMIPRIL 5 MG CAPSULE PO SCH (10:39)
[2020-11-26] MEDS ORDERED: POTASSIUM CHLORIDE ORAL LIQUID 20 MEQ/15 ML PO ONE (12:00)
[2020-11-26] MEDS ORDERED: POTASSIUM CHLORIDE TABS 20 MEQ TABLET.ER (FP) PO ONE (13:19)
[2020-11-26 13:49] VITALS: BP 125/44; TEMP 98.3
[2020-11-26 14:45] VITALS: PULSE 106
== END 2020-11-26 18:38 | disposition home or self-care (01) | DRG 177 ==
LOC: JER 04:55 → JERBED 05:18 → JICU 14:29 → J8W 11-23 23:05
PROVIDERS: ADMIT Internal Medicine Pulmonary Disease; ATTEND Internal Medicine
PROC: XW033E5 Introduction of Remdesivir Anti-infective into Peripheral Vein, Percutaneous Approach, New Technology Group 5 (ICD-10-PCS; principal; 2020-11-19)
DX: U07.1 COVID-19 (principal); J12.82 Pneumonia due to coronavirus disease 2019; E11.10 Type 2 diabetes mellitus with ketoacidosis without coma; J96.01 Acute respiratory failure with hypoxia; E87.1 Hypo-osmolality and hyponatremia; N17.9 Acute kidney failure, unspecified; I10 Essential (primary) hypertension; E87.5 Hyperkalemia; E86.0 Dehydration; E83.39 Other disorders of phosphorus metabolism; R31.9 Hematuria, unspecified; E87.6 Hypokalemia; N28.89 Other specified disorders of kidney and ureter; Z79.84 Long term (current) use of oral hypoglycemic drugs
CPT/HCPCS: 36415; 71045-TC-FY; 71275-TC; 76775-TC; 80048; 80053; 81003; 82010; 82248; 82308; 82550; 82570; 82728; 82803; 82962; 83036; 83605; 83615; 83735; 84100; 84156; 84484; 85025; 85379; 85610; 85730; 86140; 87040; 87086; 87804; 87807; 87899; 93005; 93010; 94761; 99285-25; C9399; C9803; J0131; U0003; U0005

== ENCOUNTER 2021-10-24 06:00 | Emergency (ER) | payer OTHER ==
[2021-10-24 06:15] VITALS: BP 160/95; PULSE 100; RESP 18; TEMP 98; BMI 28.2
== END 2021-10-24 08:05 | disposition home or self-care (01) ==
LOC: JER 06:00
DX: R05.9 Cough, unspecified (principal)
CPT/HCPCS: 0241U-QW; 71046-TC-FY; 99284-25